=== PATIENT | male | born 1965 ===

== ENCOUNTER → 2018-07-14 22:03 | Outpatient (REF) | payer OTHER, SELFPAY ==
[2018-07-14 22:47] LABS: Add Manual Diff / Slide Review NO; Basophils Percent Auto 0.4 % (0-2); Eosinophils Percent Auto 0.9 % (2-4); Hematocrit 41.8 % (41-53); Mean Corpuscular HGB Conc 33.6 % (30-36); Mean Corpuscular Hemoglobin 30.7 PG (26-34); Mean Corpuscular Volume 91.5 fL (80-100); Monocytes Percent Auto 6.2 % (3-14); Neutrophils Absolute Auto 3800 /uL (3000-5900); Neutrophils Percent Auto 66.5 % (50-75); Platelet Count 157 X10^3/uL (150-400); Red Blood Cell Count 4.57 X10^6/uL (4.5-5.9); White Blood Cell Count 5.7 X10^3/uL (4.5-11.0)
[2018-07-15 01:17] LABS: Hemoglobin A1C% w Est Avg Glu 5.9 % (4.0-6.0)
[2018-07-15 02:09] LABS: Thyroid Stimulating Hormone 0.78 uIU/mL (0.47-4.68)
[2018-07-15 02:24] LABS: Alanine Aminotransferase 37 IU/L (21-72); Albumin 4.4 g/dL (3.5-5.0); Albumin Globulin Ratio 1.7 (1.0-2.8); Alkaline Phosphatase 46 U/L (38-126); Aspartate Aminotransferase 37 IU/L (17-59); BUN Creatinine Ratio 24.4 (6-22); Bilirubin Total 0.6 mg/dL (0.2-1.3); Blood Urea Nitrogen 22 mg/dL (9-20); Calcium 9.2 mg/dL (8.4-10.2); Carbon Dioxide 29 mmol/L (22-32); Chloride 101 mmol/L (98-107); Cholesterol 204 mg/dL (140-199); Estimated Glomerular Filt Rate > 60.0 mL/min (>60); Globulin 2.6 g/dL (1.7-4.1); Glucose 88 mg/dL (70-100); HDL Cholesterol 98 mg/dL (40-60); HEMOLYSIS < 15 (0-50); LDL Cholesterol Calculated 86 mg/dL (<100); Potassium 4.1 mmol/L (3.4-5.1); Sodium 142 mmol/L (137-145); Triglycerides 101 mg/dL (35-150)
[2018-07-16 14:57] LABS: Insulin Level Total 3.4 uIU/mL (2.0-19.6)
== END ==
LOC: LAB 22:03
PROVIDERS: Visit Provider Family Medicine
DX: Z00.00 Encounter for general adult medical examination without abnormal findings (principal); Z13.1 Encounter for screening for diabetes mellitus; Z13.220 Encounter for screening for lipoid disorders
CPT/HCPCS: 36415; 80053; 80061; 83036; 83525; 84443; 85025